=== PATIENT | male | born 1945 | race Caucasian/White ===

== ENCOUNTER 2018-04-15 17:08 | Emergency (ER) | payer OTHER ==
--- NOTE | 2018-04-15 17:24 | ED MVC/FALL/TRAUMA COMPLAINT ---
History of Present Illness General Chief Complaint: Fall Stated Complaint: PT SLIDE DOWN HILL AND HIT A ROCK & CUT OPEN LT SD Source: patient Exam Limitations: no limitations Vital Signs & Intake/Output Vital Signs & Intake/Output Vital Signs Date Time Temp Pulse Resp B/P B/P Pulse O2 O2 Flow FiO2 Mean Ox Delivery Rate 04/15 1816 97.8 87 18 142/88 98 Room Air 04/15 1716 97 Room Air 04/15 1715 97.9 89 18 148/92 98 Room Air Allergies Uncoded Allergies: POLLEN (Mild, STUFFY NOSE 02/15/12) Triage Note: PT STATES HE SLID DOWN A HILL WHILE WORKING ABOUT 30 MINS AGO ON HIS STOMACH AND SUSTAINED A PUNCTURE TO LEFT SIDE OF ABD FROM ROCK HE HIT. DENIES HEADSTRIKE OR LOC. DENIES SOB OR PAIN ON DEEP INSPIRATION BUT HAS MILD TENDERNESS/SORENESS TO RIB AREA. LAST TETANUS 4 YEARS AGO Triage Nurses Notes Reviewed? yes Onset: Abrupt Duration: constant Timing: recent history Severity: mild Severity Numbers: 2 HPI: Patient is a [id number] male who presents emergency room with concerns of working on a grassy slope where he lost his footing patient slid down the slope where he thinks that he struck his left anterior aspect of his torso to a rock resulting laceration. Patient denies any preceding episode of lightheaded sensation or dizziness denies any head strike denies any neck or back pain denies any shortness of breath extremity pain nausea or vomiting. Tetanus is up -to-date. Denies any rib pain hemoptysis (Chacorta Jarvis) Past History Travel History Traveled to [place] past 21 day No Medical History Any Pertinent Medical History? see below for history Cardiovascular: hypertension Surgical History Surgical History: non-contributory Psychosocial History What is your primary language Filipino Tobacco Use: Never used Family History Hx Contributory? No (Chacorta Jarvis) Review of Systems Review of Systems Constitutional: Reports: no symptoms. Eyes: Reports: no symptoms. Ears, Nose, Throat, Mouth: Reports: no symptoms. Respiratory: Reports: see HPI. Cardiovascular: Reports: no symptoms. Gastrointestinal/Abdominal: Reports: no symptoms. Genitourinary: Reports: no symptoms. Musculoskeletal: Reports: no symptoms. Skin: Reports: see HPI. Neurological/Psychological: Reports: no symptoms. All Other Systems: Reviewed and Negative (Chacorta Jarvis) Physical Exam Physical Exam General Appearance: no apparent distress, alert, comfortable Head: atraumatic Eyes: Bilateral: normal appearance. Neck: normal inspection, supple, full range of motion, tender midline Respiratory: normal breath sounds, chest non-tender Cardiovascular: regular rate/rhythm Gastrointestinal: normal bowel sounds, soft Extremities: normal range of motion Neurologic/Psych: no motor/sensory deficits, awake, alert, oriented x 3, normal gait Diagram Body: 1) Noted 1 cm subcutaneous irregular laceration with no active bleeding 2) Normal inspection left anterolateral inferior point tenderness of intercostal region Core Measures ACS in differential dx? No CVA/TIA Diagnosis No Sepsis Present: No Sepsis Focused Exam Completed? No (Jennifer RICO,Chacorta) Progress Differential Diagnosis: aoritic dissection, abd injury, C/T/L spine injury, ext injury, ICH, pelvis injury, pnemothorax, spinal cord injury Plan of Care: Orders Procedure Date/time Status XRY-RIBS UNILATERAL-LEFT 04/15 1715 Active Nexus criteria 0 patient was offered pain medications and declines no apparent distress no respiratory distress patient has no peritoneal signs the laceration is of subcutaneous depth The laceration site was sterilized with Betadine and using approximately 4 cc of 1% lidocaine local anesthesia was successful THEN USING 500 cc of sterile water irrigation was performed no debris was removed I APPLIED, #3, 5-0 sutures TO THE LACERATION SITE, MARGINS WERE grossly revised Bacitracin bandage was applied Discussed x-ray results with patient for subtle eighth rib fracture he was given copies of x-ray Diagnostic Imaging: Viewed by Me: Radiology Read. Radiology Impression: acute abnormality Comments: PATIENT: JANKI PEREZ PRESENT AGE: 72 PATIENT ACCOUNT NO: [id number] : 45 LOCATION: [facility] ORDERING PHYSICIAN: Chacorta RICO SERVICE DATE: 04/15/18 EXAM TYPE: RAD - XRY-RIBS UNILATERAL-LEFT EXAMINATION: XR RIBS, LEFT CLINICAL INFORMATION: Fall, left lateral rib pain. COMPARISON: None TECHNIQUE: 5 views of the left ribs were obtained. FINDINGS: No displaced rib fracture. Equivocal contour irregularity along the lateral aspect of the left 8th rib. No pneumoperitoneum, parenchymal consolidation, or pleural effusion. No mediastinal widening. IMPRESSION: Equivocal contour irregularity along the lateral aspect of the left 8th rib could represent nondisplaced fracture. DICTATED BY: Yogesh Liz MD DATE/TIME DICTATED:04/15/181728 SECRETARIAL TEACHER:EDU DATE/TIME TRANSCRIBED:04/15/181728 (Chacorta Jarvis) Departure Departure Disposition: HOME OR SELF CARE Condition: Stable Clinical Impression Primary Impression: Left rib fracture Secondary Impressions: Fall, Laceration of abdomen Referrals: Prashanth Ariza MD (PCP/Family) Additional Instructions: As discussed begin [id number] ibuprofen as directed if needed for pain and inflammation, BEGIN to apply bacitracin to the region once a day for the following 4 days in the area open to improve healing. if you note signs of infection redness, pain, swelling, discharge return to emergency room. Return to emergency room or follow-up with your primary care doctor in 7 days for suture removal Departure Forms: Customer Survey General Discharge Information (Chacorta Jarvis) PA/BIOLOGY LABORATORY ASSISTANT Co-Sign Statement Statement: ED Attending supervision documentation- [] I saw and evaluated the patient. I have also reviewed all the pertinent lab results and diagnostic results. I agree with the findings and the plan of care as documented in the PA's/BIOLOGY LABORATORY ASSISTANT's documentation. [X] I have reviewed the ED Record and agree with the PA's/BIOLOGY LABORATORY ASSISTANT's documentation. [] Additions or exceptions (if any) to the PAs/BIOLOGY LABORATORY ASSISTANT's note and plan are summarized below: [] PT NOT SEEN BY ME (Elisabeth HAIR,[facility])
--- NOTE | 2018-04-15 17:45 | RADIOLOGY REPORT ---
EXAMINATION: XR RIBS, LEFT CLINICAL INFORMATION: Fall, left lateral rib pain. COMPARISON: None TECHNIQUE: 5 views of the left ribs were obtained. FINDINGS: No displaced rib fracture. Equivocal contour irregularity along the lateral aspect of the left 8th rib. No pneumoperitoneum, parenchymal consolidation, or pleural effusion. No mediastinal widening. IMPRESSION: Equivocal contour irregularity along the lateral aspect of the left 8th rib could represent nondisplaced fracture.
[2018-04-15 18:16] VITALS: BP 142/88
== END 2018-04-15 18:17 ==
LOC: ERH 17:08
DX: S22.32XA Fracture of one rib, left side, initial encounter for closed fracture (principal); S31.119A Laceration without foreign body of abdominal wall, unspecified quadrant without penetration into peritoneal cavity, initial encounter; W01.0XXA Fall on same level from slipping, tripping and stumbling without subsequent striking against object, initial encounter; Y93.01 Activity, walking, marching and hiking
CPT/HCPCS: 71100-LT; J2001